=== PATIENT | male | born 1975 | race Two or more races ===

== ENCOUNTER → 2017-09-30 14:15 | Outpatient (CLI) | payer MEDICAID, SELFPAY ==
--- NOTE | 2017-09-30 14:15 | POL_PTH ---
PATIENT: MARANDA DOMINGUEZ LOC: [facility] U#:[id number] AGE/SX: 49/M ROOM: RE09/30/[address]: Dr. Allan Akers MD : [id number] BED: DIS: SPEC #: [id number] RECD: 10/01/17 15:23 STATUS: CAT NEIDA #: [id number] THEO: 09/30/17 14:[address]: Allan Akers DEPT: SURGICAL PATHOLOGY RECD BY: Kamini Gomez ENTERED: 10/02/17 08:29 SP TYPE: Polyp OTHR DR: Dr. Vincenzo Butler MD [facility] Tissues: POLYP Procedures: Surgery Specimen Level IV HEADER OPERATION: Excision of middle ear polyp, left tympanoplasty PRE-OP DIAGNOSIS: Central perforation of tympanic membranes polyp of middle ear, left ear TISSUE SUBMITTED: Middle ear polyp, left MICROSCOPIC DIAGNOSIS Middle ear polyp, left, excision: Fragments of benign inflamed epithelial polyp. See comment. SJ:delmy 10/03/17 COMMENT The fragments of polyp are lined by stratified columnar epithelium (respiratory epithelium). Case has been reviewed in consultation with Dr. Galloway who concurs with the above diagnosis. IDC:AM MICROSCOPIC DESCRIPTION Slides are reviewed. GROSS DESCRIPTION Received is one container labeled with the patient's name and not further designated. The specimen consists of multiple irregular fragments of jean-white soft tissue that in aggregate measure 1 x 0.2 x 0.1 cm. The specimen is totally submitted in one cassette. / JAYSHREE:delmy 10/02/17 TC:5 CPT: 48155
== END ==
PROVIDERS: Visit Provider Otolaryngology
DX: H72.02 Central perforation of tympanic membrane, left ear (principal); H74.42 Polyp of left middle ear
CPT/HCPCS: 88305

== ENCOUNTER → 2018-01-22 16:47 | Outpatient (CLI) | payer MEDICAID, SELFPAY | PROVIDERS: Visit Provider Otolaryngology | DX: H92.10 Otorrhea, unspecified ear (principal) | CPT/HCPCS: 87070; 87205 ==